=== PATIENT | male | born 1970 | race Caucasian/White ===

== ENCOUNTER 2019-10-31 10:57 | Inpatient (IN) | payer OTHER ==
--- NOTE | 2019-10-31 12:01 | BHS.RME ---
Substance Use & Tx History - Substance Use History Heroin Substance amount: 10 bags Frequency of use: Daily Substance route: Inhalation (ex: sniffing or snorting) Date of Last Use: 10/30/19 Xanax Substance amount: 2mg Frequency of use: Less than 3 times per week Substance route: Oral Date of Last Use: 10/28/19 Alcohol Substance amount: 1/2 pint vodka, 6 12oz/day Frequency of use: Daily Substance route: Oral Date of Last Use: 10/30/19 - Last Treatment Date of last treatment: NA Physical/Psych/Mental Status - Behavior General Behavior: Increased activity (restlessness, agitation) Eye Contact: Normal Other Behaviors: Mannerisms - Cooperativeness Cooperativeness: Cooperative - Thinking Thought Processes: Tight, Logical Thought content: Future oriented - Physical Health Problems Is patient presently having any pain?: Yes (abdominal pain) Does patient presently have any injuries (include location): No Does patient currently have a fever: No COWS - Scale Resting Pulse: 0= [place] 80 or Below Sweatin= Chills/Flushing Restless Observation: 1= Difficult to Sit Still Pupil Size: 1= Pupils >than Normal Bone or Joint Aches: 1= Mild Discomfort Runny Nose/ Eye Tearin= Runny Nose/Eyes GI Upset > 30mins: 1= Stomach Cramp Tremor Observation: 2= Slight Tremor Visible Yawning Observation: 1= 1-2x During Session Anxiety or Irritability: 2=Irritable/Anxious Goose Flesh Skin: 0=Smooth Skin COWS Score: 12 CIWA Nausea/Vomitin Muscle Tremors: 2 Anxiety: 2 Agitation: 2 Paroxysmal Sweats: 2 Orientation: 0-Oriented Tacttile Disturbances: 2-Mild Itch/Numbness/Burn Auditory Disturbances: 1-Very Mild Visual Disturbances: 1-Very Mild Sensitivity Headache: 0-None Present CIWA-Ar Total Score: 14
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
[2019-10-31] MEDS ORDERED: cloNIDine HCL 0.1 MG TABLET PO PRN (12:39)
[2019-10-31] MEDS ORDERED: METHADONE HCL 10 MG TABLET (FOR DETOX USE ONLY) PO ONE (12:39)
[2019-10-31] MEDS ORDERED: MAGNESIUM HYDROX 2400MG/30ML ORAL SUSPENSION 30 ML CUP PO PRN (12:39)
[2019-10-31] MEDS ORDERED: MAGNESIUM CITRATE 300 ML BOTTLE PO PRN (12:39)
[2019-10-31] MEDS ORDERED: METHOCARBAMOL 500 MG TABLET PO PRN (12:39)
[2019-10-31] MEDS ORDERED: NALOXONE HCL 0.4 MG/ML VIAL IM PRN (12:39)
[2019-10-31] MEDS ORDERED: ACETAMINOPHEN 325 MG TABLET (FP) PO PRN ×2 (12:39)
[2019-10-31] MEDS ORDERED: MENTHOL/PHENOL 1 EACH UD MM PRN (12:39)
[2019-10-31] MEDS ORDERED: MAG HYDROX/AL HYDROX/SIMETH 30 ML UNIT-DOSE CUP PO PRN (12:39)
[2019-10-31 12:40] VITALS: BMI 27.6
[2019-10-31] MEDS ORDERED: ALBUTEROL SO4 HFA INHALER IH PRN (12:43)
[2019-10-31] MEDS: diazePAM 5 MG TABLET PO SCH ×2 (13:37→22:22)
[2019-10-31] MEDS: PHENYTOIN NA EXTENDED 100 MG CAPSULE (FP) PO SCH (13:41)
--- NOTE | 2019-10-31 15:00 | EKG ---
Test Reason : Blood Pressure : / mmHG Vent. Rate : 068 BPM Atrial Rate : 068 BPM P-R Int : 140 ms QRS Dur : 100 ms QT Int : 366 ms P-R-T Axes : 049 057 041 degrees QTc Int : 389 ms NORMAL SINUS RHYTHM NORMAL ECG NO PREVIOUS ECGS AVAILABLE Confirmed by Delgado Resendiz ([id number]) on 10/31/2019 2:59:56 PM Referred By: Confirmed By:Delgado Resendiz
[2019-10-31] MEDS: diazePAM 5 MG TABLET PO PRN (17:35)
[2019-10-31] MEDS ORDERED: levETIRAcetam 250 MG TABLET PO ONE (21:27)
[2019-10-31] MEDS: MELATONIN 5 MG TABLETS PO SCH (22:21)
[2019-10-31] MEDS: levETIRAcetam 500 MG TABLET (FP) PO SCH (22:21)
[2019-10-31] MEDS: THIAMINE HCL 100 MG TABLET (FP) PO SCH (22:22)
[2019-11-01] MEDS: diazePAM 5 MG TABLET PO PRN ×2 (01:07→10:45)
[2019-11-01] MEDS: diazePAM 5 MG TABLET PO SCH ×3 (05:22→22:34)
[2019-11-01] MEDS ORDERED: METHADONE HCL 5 MG TABLET (FOR DETOX USE ONLY) PO ONE (10:00)
--- NOTE | 2019-11-01 10:31 | PN ---
[facility] CIWA - CIWA Score Nausea/Vomitin-Mild Nausea/No Vomiting Muscle Tremors: 2 Anxiety: 3 Agitation: 2 Paroxysmal Sweats: 3 Orientation: 0-Oriented Tacttile Disturbances: 0-None Auditory Disturbances: 0-None Visual Disturbances: 0-None Headache: 0-None Present CIWA-Ar Total Score: 11 BHS COWS - Scale Resting Pulse: 1= [place] 81-100 Sweatin= Chills/Flushing Restless Observation: 1= Difficult to Sit Still Pupil Size: 0= Normal to Room Light Bone or Joint Aches: 2= Severe Diffuse Aches Runny Nose/ Eye Tearin= None GI Upset > 30mins: 1= Stomach Cramp Tremor Observation of Outstretched Hands: 2= Slight Tremor Visible Yawning Observation: 0= None Anxiety or Irritability: 1=Feels Anxious/Irritable Goose Flesh Skin: 0=Smooth Skin COWS Score: 9 BHS Progress Note (SOAP) Subjective: Complaints of sweats, chills, anxiety, tremors , mild nausea/abdominal cramps, and joints aches. Objective: 11/01/19 10:29 Vital Signs 11/01/19 11/01/19 05:19 08:54 Temperature 96.9 F L 97.3 F L Pulse Rate 77 83 Respiratory 16 17 Rate Blood Pressure 129/85 121/72 O2 Sat by Pulse 100 100 Oximetry (%) Labs pending. Assessment: 11/01/19 10:30 Alert and oriented x 3, in no acute respiratory distress. Full ROM, ambulatory in unit without any assistance. Skin warm to touch without any lesions. Withdrawal symptoms. Plan: Continue detox protocol.
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
[2019-11-01] MEDS: levETIRAcetam 500 MG TABLET (FP) PO SCH ×2 (10:41→22:31)
[2019-11-01] MEDS: PRENATAL VITAMINS W/ FOLIC ACID TABLET (FP) PO SCH (10:42)
[2019-11-01] MEDS: PHENYTOIN NA EXTENDED 100 MG CAPSULE (FP) PO SCH (10:44)
[2019-11-01 11:11] LABS: BILIRUBIN,TOTAL 0.2 mg/dL (0.2-1); BLOOD UREA NITROGEN 19.2 mg/dL (7-18); CALCIUM 8.8 mg/dL (8.5-10.1); CREATININE 1.1 mg/dL (0.55-1.3); TOT PROT 6.4 g/dl (6.4-8.2)
[2019-11-01 11:37] LABS: HEMATOCRIT 26.8 % (35.4-49); MCH 20.7 pg (25.7-33.7); MCHC 29.8 g/dl (32.0-35.9); MEAN CELL VOLUME 69.5 fl (80-96); MEAN PLT VOLUME 9.6 fl (7.5-11.1); PLATELET COUNT 225 K/MM3 (134-434); RBC 3.85 M/mm3 (4.00-5.60); RDW 19.6 % (11.9-15.9); WHITE BLOOD COUNT 4.7 K/mm3 (4.0-10.0)
[2019-11-01] MEDS ORDERED: AMITRIPTYLINE HCL 75 MG TABLET PO SCH (22:00)
[2019-11-01] MEDS: buPROPion HCL 75 MG TABLET PO SCH (22:30)
[2019-11-01] MEDS: MELATONIN 5 MG TABLETS PO SCH (22:32)
[2019-11-01] MEDS: THIAMINE HCL 100 MG TABLET (FP) PO SCH (22:32)
[2019-11-01] MEDS: SUVOREXANT 10 MG TABLET PO PRN (22:34)
[2019-11-02] MEDS ORDERED: diazePAM 5 MG TABLET PO SCH (06:00)
[2019-11-02] MEDS ORDERED: METHADONE HCL 10 MG TABLET (FOR DETOX USE ONLY) PO ONE (10:00)
[2019-11-02] MEDS: PHENYTOIN NA EXTENDED 100 MG CAPSULE (FP) PO SCH (11:03)
[2019-11-02] MEDS: buPROPion HCL 75 MG TABLET PO SCH ×2 (11:03→17:33)
[2019-11-02] MEDS: levETIRAcetam 500 MG TABLET (FP) PO SCH ×2 (11:04→22:08)
[2019-11-02] MEDS: PRENATAL VITAMINS W/ FOLIC ACID TABLET (FP) PO SCH (11:04)
[2019-11-02] MEDS: FERROUS SO4 325 MG TABLET (FP) PO SCH ×2 (11:05→17:33)
[2019-11-02] MEDS: LORazepam 2 MG TABLET PO SCH ×3 (12:27→22:06)
--- NOTE | 2019-11-02 13:17 | PN ---
S CIWA - CIWA Score Nausea/Vomitin Muscle Tremors: 2 Anxiety: 2 Agitation: 2 Paroxysmal Sweats: 1-Minimal Palms Moist Orientation: 0-Oriented Tacttile Disturbances: 1-Very Mild Itch/Numbness Auditory Disturbances: 0-None Visual Disturbances: 0-None Headache: 2-Mild CIWA-Ar Total Score: 12 S Progress Note (SOAP) Subjective: alert,irritable,anxious,interrupted sleep,aching pain in the body and back Objective: 11/02/19 13:13 Initial Vital Signs Temp Pulse Resp BP 97.4 F L 65 18 122/76 10/31/19 12:19 10/31/19 12:19 10/31/19 12:19 10/31/19 12:19 11/02/19 13:14 Vital Signs Temperature 98.6 F 11/02/19 09:10 Pulse Rate 86 11/02/19 09:10 Respiratory Rate 19 11/02/19 09:10 Blood Pressure 139/56 L 11/02/19 09:10 O2 Sat by Pulse Oximetry (%) 100 11/02/19 09:10 11/02/19 13:14 Laboratory Last Values WBC 4.7 K/mm3 (4.0-10.0) 11/01/19 07:20 RBC 3.85 M/mm3 (4.00-5.60) L 11/01/19 07:20 Hgb 8.0 GM/dL (11.7-16.9) L 11/01/19 07:20 Hct 26.8 % (35.4-49) L D 11/01/19 07:20 MCV 69.5 fl (80-96) L 11/01/19 07:20 MCH 20.7 pg (25.7-33.7) L D 11/01/19 07:20 MCHC 29.8 g/dl (32.0-35.9) L 11/01/19 07:20 RDW 19.6 % (11.9-15.9) H 11/01/19 07:20 Plt Count 225 K/MM3 (134-434) D 11/01/19 07:20 MPV 9.6 fl (7.5-11.1) D 11/01/19 07:20 Sodium 135 mmol/L (136-145) L 11/01/19 07:20 Potassium 4.0 mmol/L (3.5-5.1) 11/01/19 07:20 Chloride 103 mmol/L (98-107) 11/01/19 07:20 Carbon Dioxide 25 mmol/L (21-32) 11/01/19 07:20 Anion Gap 7 MMOL/L (8-16) L 11/01/19 07:20 BUN 19.2 mg/dL (7-18) H 11/01/19 07:20 Creatinine 1.1 mg/dL (0.55-1.3) 11/01/19 07:20 Est GFR (CKD-EPI)AfAm 92.16 11/01/19 07:20 Est GFR (CKD-EPI)NonAf 79.52 11/01/19 07:20 Random Glucose 99 mg/dL (74-106) 11/01/19 07:20 Calcium 8.8 mg/dL (8.5-10.1) 11/01/19 07:20 Total Bilirubin 0.2 mg/dL (0.2-1) 11/01/19 07:20 AST 15 U/L (15-37) 11/01/19 07:20 ALT 21 U/L (13-61) 11/01/19 07:20 Alkaline Phosphatase 111 U/L (45-117) 11/01/19 07:20 Total Protein 6.4 g/dl (6.4-8.2) 11/01/19 07:20 Albumin 3.0 g/dl (3.4-5.0) L 11/01/19 07:20 Phenytoin <0.4 11/01/19 07:20 Syphilis Serology Non-reactive (NONREACTIVE) 11/01/19 07:20 COVID-19 (ASAD) Not detected (Not Detected) 10/31/19 12:40 Assessment: 11/02/19 13:17 withdrawal symptom Plan: continue detox,patient did not want valium regimen would like to change to ativan regimen,anemic ,use to take iron,ferrous sulfate 325 mgs po bid
[2019-11-02] MEDS: THIAMINE HCL 100 MG TABLET (FP) PO SCH (22:06)
[2019-11-02] MEDS: AMITRIPTYLINE HCL PO SCH (22:07)
[2019-11-02] MEDS: SUVOREXANT 10 MG TABLET PO PRN (22:07)
[2019-11-02] MEDS: MELATONIN 5 MG TABLETS PO SCH (22:08)
[2019-11-03] MEDS: LORazepam 2 MG TABLET PO SCH ×4 (05:58→22:06)
[2019-11-03] MEDS ORDERED: METHADONE HCL 5 MG TABLET (FOR DETOX USE ONLY) PO ONE (06:00)
[2019-11-03] MEDS ORDERED: diazePAM 5 MG TABLET PO ONE (06:00)
[2019-11-03] MEDS: FERROUS SO4 325 MG TABLET (FP) PO SCH ×2 (07:59→17:08)
[2019-11-03] MEDS: levETIRAcetam 500 MG TABLET (FP) PO SCH ×2 (10:17→22:08)
[2019-11-03] MEDS: buPROPion HCL 75 MG TABLET PO SCH ×2 (10:17→17:08)
[2019-11-03] MEDS: PRENATAL VITAMINS W/ FOLIC ACID TABLET (FP) PO SCH (10:17)
[2019-11-03] MEDS: PHENYTOIN NA EXTENDED 100 MG CAPSULE (FP) PO SCH (10:17)
--- NOTE | 2019-11-03 12:28 | PN ---
S CIWA - CIWA Score Nausea/Vomitin-Mild Nausea/No Vomiting Muscle Tremors: 2 Anxiety: 2 Agitation: 1-Slight > Activity Paroxysmal Sweats: No Perspiration Orientation: 0-Oriented Tacttile Disturbances: 0-None Auditory Disturbances: 0-None Visual Disturbances: 0-None Headache: 1-Very Mild CIWA-Ar Total Score: 7 BHS COWS - Scale Resting Pulse: 0= [place] 80 or Below Sweatin= No chills or Flushing Restless Observation: 0= Sits Still Pupil Size: 0= Normal to Room Light Bone or Joint Aches: 1= Mild Discomfort Runny Nose/ Eye Tearin= Nasal Congestion GI Upset > 30mins: 2= Nausea/Diarrhea Tremor Observation of Outstretched Hands: 2= Slight Tremor Visible Yawning Observation: 1= 1-2x During Session Anxiety or Irritability: 2=Irritable/Anxious Goose Flesh Skin: 0=Smooth Skin COWS Score: 9 S Progress Note (SOAP) Subjective: alert,irritable,anxious,interrupted sleep,tremor,pain in the body Objective: 11/03/19 12:33 Vital Signs Temperature 98.1 F 11/03/19 09:19 Pulse Rate 63 11/03/19 09:19 Respiratory Rate 16 11/03/19 09:19 Blood Pressure 115/63 11/03/19 09:19 O2 Sat by Pulse Oximetry (%) 96 11/03/19 05:55 11/03/19 12:33 Laboratory Last Values WBC 4.7 K/mm3 (4.0-10.0) 11/01/19 07:20 RBC 3.85 M/mm3 (4.00-5.60) L 11/01/19 07:20 Hgb 8.0 GM/dL (11.7-16.9) L 11/01/19 07:20 Hct 26.8 % (35.4-49) L D 11/01/19 07:20 MCV 69.5 fl (80-96) L 11/01/19 07:20 MCH 20.7 pg (25.7-33.7) L D 11/01/19 07:20 MCHC 29.8 g/dl (32.0-35.9) L 11/01/19 07:20 RDW 19.6 % (11.9-15.9) H 11/01/19 07:20 Plt Count 225 K/MM3 (134-434) D 11/01/19 07:20 MPV 9.6 fl (7.5-11.1) D 11/01/19 07:20 Sodium 135 mmol/L (136-145) L 11/01/19 07:20 Potassium 4.0 mmol/L (3.5-5.1) 11/01/19 07:20 Chloride 103 mmol/L (98-107) 11/01/19 07:20 Carbon Dioxide 25 mmol/L (21-32) 11/01/19 07:20 Anion Gap 7 MMOL/L (8-16) L 11/01/19 07:20 BUN 19.2 mg/dL (7-18) H 11/01/19 07:20 Creatinine 1.1 mg/dL (0.55-1.3) 11/01/19 07:20 Est GFR (CKD-EPI)AfAm 92.16 11/01/19 07:20 Est GFR (CKD-EPI)NonAf 79.52 11/01/19 07:20 Random Glucose 99 mg/dL (74-106) 11/01/19 07:20 Calcium 8.8 mg/dL (8.5-10.1) 11/01/19 07:20 Total Bilirubin 0.2 mg/dL (0.2-1) 11/01/19 07:20 AST 15 U/L (15-37) 11/01/19 07:20 ALT 21 U/L (13-61) 11/01/19 07:20 Alkaline Phosphatase 111 U/L (45-117) 11/01/19 07:20 Total Protein 6.4 g/dl (6.4-8.2) 11/01/19 07:20 Albumin 3.0 g/dl (3.4-5.0) L 11/01/19 07:20 Phenytoin <0.4 11/01/19 07:20 Syphilis Serology Non-reactive (NONREACTIVE) 11/01/19 07:20 COVID-19 (ASAD) Not detected (Not Detected) 10/31/19 12:40 Assessment: 11/03/19 12:36 withdrawal symptom Plan: continue detox methadone and ativan regimen,repeat cbc,bmp,dilatin in am
[2019-11-03] MEDS: LORazepam 1 MG TABLET PO PRN ×2 (13:05→18:53)
[2019-11-03] MEDS: THIAMINE HCL 100 MG TABLET (FP) PO SCH (22:06)
[2019-11-03] MEDS: AMITRIPTYLINE HCL PO SCH (22:07)
[2019-11-03] MEDS: SUVOREXANT 10 MG TABLET PO PRN (22:07)
[2019-11-03] MEDS: MELATONIN 5 MG TABLETS PO SCH (22:08)
[2019-11-04] MEDS: LORazepam 1 MG TABLET PO SCH ×4 (06:44→22:00)
[2019-11-04] MEDS: FERROUS SO4 325 MG TABLET (FP) PO SCH ×2 (07:04→17:30)
[2019-11-04] MEDS: buPROPion HCL 75 MG TABLET PO SCH ×2 (10:31→17:30)
[2019-11-04] MEDS: PRENATAL VITAMINS W/ FOLIC ACID TABLET (FP) PO SCH (10:31)
[2019-11-04 10:33] LABS: HEMATOCRIT 26.7 % (35.4-49); HEMOGLOBIN 8.1 GM/dL (11.7-16.9); MCHC 30.2 g/dl (32.0-35.9); MEAN CELL VOLUME 69.5 fl (80-96); MEAN PLT VOLUME 9.6 fl (7.5-11.1); PLATELET COUNT 189 K/MM3 (134-434); RBC 3.84 M/mm3 (4.00-5.60); RDW 20.1 % (11.9-15.9); WHITE BLOOD COUNT 4.8 K/mm3 (4.0-10.0)
[2019-11-04] MEDS: PHENYTOIN NA EXTENDED 100 MG CAPSULE (FP) PO SCH (10:33)
[2019-11-04] MEDS: levETIRAcetam 500 MG TABLET (FP) PO SCH ×2 (10:33→21:49)
[2019-11-04 10:36] LABS: BLOOD UREA NITROGEN 11.3 mg/dL (7-18); CALCIUM 8.4 mg/dL (8.5-10.1); CREATININE 0.9 mg/dL (0.55-1.3); POTASSIUM 3.9 mmol/L (3.5-5.1)
--- NOTE | 2019-11-04 11:28 | PN ---
S CIWA - CIWA Score Nausea/Vomitin-Mild Nausea/No Vomiting Muscle Tremors: 1-None Visible, but [place] Anxiety: 1-Mildly Anxious Agitation: 1-Slight > Activity Paroxysmal Sweats: No Perspiration Orientation: 0-Oriented Tacttile Disturbances: 1-Very Mild Itch/Numbness Auditory Disturbances: 0-None Visual Disturbances: 0-None Headache: 1-Very Mild CIWA-Ar Total Score: 6 BHS Progress Note (SOAP) Subjective: alert,irritable,anxious,interrupted sleep,tremor,pain in the body Objective: 11/04/19 11:38 Vital Signs Temperature 97.6 F 11/04/19 08:55 Pulse Rate 85 11/04/19 08:55 Respiratory Rate 19 11/04/19 08:55 Blood Pressure 131/71 11/04/19 08:55 O2 Sat by Pulse Oximetry (%) 99 11/04/19 08:55 Assessment: 11/04/19 11:39 withdrawal symptom Plan: continue detox ativan regimen
[2019-11-04] MEDS: LORazepam 1 MG TABLET PO PRN ×2 (14:29→19:34)
[2019-11-04] MEDS ORDERED: PHENYTOIN NA EXTENDED 100 MG CAPSULE (FP) PO SCH (14:32)
--- NOTE | 2019-11-04 14:32 | PN ---
Kasia Progress Note Note: patient has been refusing dilantin and keppra,so far no seizure activity,close monitoring,on ativan prn
[2019-11-04] MEDS ORDERED: PHENYTOIN NA EXTENDED 100 MG CAPSULE (FP) PO ONE (15:00)
[2019-11-04] MEDS: MELATONIN 5 MG TABLETS PO SCH (21:49)
[2019-11-04] MEDS: AMITRIPTYLINE HCL PO SCH (21:49)
[2019-11-04] MEDS: SUVOREXANT 10 MG TABLET PO PRN (21:49)
[2019-11-04] MEDS: THIAMINE HCL 100 MG TABLET (FP) PO SCH (21:51)
[2019-11-05] MEDS ORDERED: LORazepam 0.5 MG TABLET PO PRN
[2019-11-05] MEDS: LORazepam 0.5 MG TABLET PO SCH ×2 (05:32→10:19)
[2019-11-05] MEDS: FERROUS SO4 325 MG TABLET (FP) PO SCH (07:11)
--- NOTE | 2019-11-05 07:54 | PN ---
[facility] Progress Note Note: Patient has history of seizure and is refusing Dilantin. Signed refusal of treatment form Vital Signs Temperature 96.6 F L 11/05/19 05:19 Pulse Rate 78 11/05/19 05:19 Respiratory Rate 16 11/05/19 05:19 Blood Pressure 120/78 11/05/19 05:19 O2 Sat by Pulse Oximetry (%) 96 11/05/19 05:19 Laboratory Last Values WBC 4.8 K/mm3 (4.0-10.0) 11/04/19 07:50 RBC 3.84 M/mm3 (4.00-5.60) L 11/04/19 07:50 Hgb 8.1 GM/dL (11.7-16.9) L 11/04/19 07:50 Hct 26.7 % (35.4-49) L 11/04/19 07:50 MCV 69.5 fl (80-96) L 11/04/19 07:50 MCH 21.0 pg (25.7-33.7) L 11/04/19 07:50 MCHC 30.2 g/dl (32.0-35.9) L 11/04/19 07:50 RDW 20.1 % (11.9-15.9) H 11/04/19 07:50 Plt Count 189 K/MM3 (134-434) 11/04/19 07:50 MPV 9.6 fl (7.5-11.1) 11/04/19 07:50 Sodium 137 mmol/L (136-145) 11/04/19 07:50 Potassium 3.9 mmol/L (3.5-5.1) 11/04/19 07:50 Chloride 107 mmol/L (98-107) 11/04/19 07:50 Carbon Dioxide 25 mmol/L (21-32) 11/04/19 07:50 Anion Gap 5 MMOL/L (8-16) L 11/04/19 07:50 BUN 11.3 mg/dL (7-18) 11/04/19 07:50 Creatinine 0.9 mg/dL (0.55-1.3) 11/04/19 07:50 Est GFR (CKD-EPI)AfAm 117.47 11/04/19 07:50 Est GFR (CKD-EPI)NonAf 101.35 11/04/19 07:50 Random Glucose 107 mg/dL (74-106) H 11/04/19 07:50 Calcium 8.4 mg/dL (8.5-10.1) L 11/04/19 07:50 Total Bilirubin 0.2 mg/dL (0.2-1) 11/01/19 07:20 AST 15 U/L (15-37) 11/01/19 07:20 ALT 21 U/L (13-61) 11/01/19 07:20 Alkaline Phosphatase 111 U/L (45-117) 11/01/19 07:20 Total Protein 6.4 g/dl (6.4-8.2) 11/01/19 07:20 Albumin 3.0 g/dl (3.4-5.0) L 11/01/19 07:20 Phenytoin <0.4 11/04/19 07:50 Syphilis Serology Non-reactive (NONREACTIVE) 11/01/19 07:20 COVID-19 (ASAD) Not detected (Not Detected) 10/31/19 12:40 Action: Dilantin level ordered Maintain seizure precaution
[2019-11-05] MEDS: PRENATAL VITAMINS W/ FOLIC ACID TABLET (FP) PO SCH (09:50)
[2019-11-05] MEDS: buPROPion HCL 75 MG TABLET PO SCH (09:50)
[2019-11-05] MEDS: levETIRAcetam 500 MG TABLET (FP) PO SCH (09:52)
[2019-11-05 11:11] VITALS: TEMP 97.4
--- NOTE | 2019-11-05 11:56 | PN ---
S CIWA - CIWA Score Nausea/Vomitin-No Nausea/No Vomiting Muscle Tremors: None Anxiety: 1-Mildly Anxious Agitation: 1-Slight > Activity Paroxysmal Sweats: No Perspiration Orientation: 0-Oriented Tacttile Disturbances: 0-None Auditory Disturbances: 0-None Visual Disturbances: 0-None Headache: 0-None Present CIWA-Ar Total Score: 2 [facility] Progress Note (SOAP) Subjective: feeling ok little anxiety Objective: 11/05/19 11:53 Vital Signs Temperature 97.4 F L 11/05/19 09:35 Pulse Rate 79 11/05/19 09:35 Respiratory Rate 17 11/05/19 09:35 Blood Pressure 114/69 11/05/19 09:35 O2 Sat by Pulse Oximetry (%) 97 11/05/19 09:35 aaox3 ambulating no acute distress discussed the reason for not adhering to taking his dilantin; pt states I don't want it. It make me feel like it will bring on a seizure. Pt was explained that there are other medication that he can get to assist with preventing a seizure but he refused. Assessment: 11/05/19 11:55 mild withdrawals Plan: continue detox d/c in am
[2019-11-05] MEDS ORDERED: FERROUS SO4 325 MG TABLET (FP) PO SCH (12:00)
--- NOTE | 2019-11-05 13:40 | DS ---
[facility] Detox Discharge Summary Admission Date: 10/31/19 Discharge Date: 11/05/19 - History Present History: Alcohol Dependence - Physical Exam Results Vital Signs: Vital Signs Temperature 97.4 F L 11/05/19 09:35 Pulse Rate 79 11/05/19 09:35 Respiratory Rate 17 11/05/19 09:35 Blood Pressure 114/69 11/05/19 09:35 O2 Sat by Pulse Oximetry (%) 97 11/05/19 09:35 Pertinent Admission Physical Exam Findings: Vital Signs Temperature 97.4 F L 11/05/19 09:35 Pulse Rate 79 11/05/19 09:35 Respiratory Rate 17 11/05/19 09:35 Blood Pressure 114/69 11/05/19 09:35 O2 Sat by Pulse Oximetry (%) 97 11/05/19 09:35 Laboratory Tests 10/31/19 11/01/19 11/01/19 12:40 07:20 07:20 WBC RBC Hgb Hct MCV MCH MCHC RDW Plt Count MPV Sodium Potassium Chloride Carbon Dioxide Anion Gap BUN Creatinine Est GFR (CKD-EPI)AfAm Est GFR (CKD-EPI)NonAf Random Glucose Calcium Total Bilirubin AST ALT Alkaline Phosphatase Total Protein Albumin Phenytoin <0.4 Syphilis Serology Non-reactive COVID-19 (ASAD) Not detected 11/01/19 11/01/19 11/04/19 07:20 07:20 07:50 WBC 4.7 4.8 RBC 3.85 L 3.84 L Hgb 8.0 L 8.1 L Hct 26.8 L D 26.7 L MCV 69.5 L 69.5 L MCH 20.7 L D 21.0 L MCHC 29.8 L 30.2 L RDW 19.6 H 20.1 H Plt Count 225 D 189 MPV 9.6 D 9.6 Sodium 135 L Potassium 4.0 Chloride 103 Carbon Dioxide 25 Anion Gap 7 L BUN 19.2 H Creatinine 1.1 Est GFR (CKD-EPI)AfAm 92.16 Est GFR (CKD-EPI)NonAf 79.52 Random Glucose 99 Calcium 8.8 Total Bilirubin 0.2 AST 15 ALT 21 Alkaline Phosphatase 111 Total Protein 6.4 Albumin 3.0 L Phenytoin Syphilis Serology COVID-19 (ASAD) 11/04/19 11/04/19 07:50 07:50 WBC RBC Hgb Hct MCV MCH MCHC RDW Plt Count MPV Sodium 137 Potassium 3.9 Chloride 107 Carbon Dioxide 25 Anion Gap 5 L BUN 11.3 Creatinine 0.9 Est GFR (CKD-EPI)AfAm 117.47 Est GFR (CKD-EPI)NonAf 101.35 Random Glucose 107 H Calcium 8.4 L Total Bilirubin AST ALT Alkaline Phosphatase Total Protein Albumin Phenytoin <0.4 Syphilis Serology COVID-19 (ASAD) aaox3 ambulating no acute distress - Treatment Hospital Course: Detox Protocol Followed, Detoxed Safely, Responded well, Discharged Condition Good, Rehab Referral Accepted - Medication Discharge Medications: Ambulatory Orders Albuterol Sulfate Inhaler - [Ventolin Hfa Inhaler -] 1 - 2 inh PO QID PRN 10/31/19 Amitriptyline HCl [Elavil -] 150 mg PO HS 10/31/19 Bupropion HCl [Wellbutrin -] 75 mg PO DAILY 10/31/19 Bupropion HCl [Wellbutrin Xl -] 150 mg PO DAILY 10/31/19 Cariprazine HCl [Vraylar] 3 mg PO BID 10/31/19 Phenytoin Na Extended [Dilantin -] 300 mg PO DAILY 10/31/19 levETIRAcetam [Keppra -] 750 mg PO BID 10/31/19 - Diagnosis (1) Alcohol dependence with uncomplicated withdrawal Current Visit: Yes Status: Acute (2) Anemia Current Visit: Yes Status: Acute (3) Opioid dependence with withdrawal Current Visit: Yes Status: Acute (4) Substance induced mood disorder Current Visit: Yes Status: Acute (5) Substance-induced sleep disorder Current Visit: Yes Status: Acute (6) Bronchial asthma Current Visit: Yes Status: Chronic (7) HIV (human immunodeficiency virus infection) Current Visit: Yes Status: Chronic (8) Kidney stones Current Visit: Yes Status: Chronic (9) Schizoaffective disorder Current Visit: Yes Status: Chronic (10) Seizure disorder Current Visit: Yes Status: Chronic (11) TIA (transient ischemic attack) Current Visit: Yes Status: Chronic (12) CVA (cerebral vascular accident) Current Visit: Yes Status: Ruled-out - AMA Did Patient Leave Against Medical Advice: No
[2019-11-05 14:27] VITALS: BP 116/70; PULSE 99
[2019-11-06] MEDS ORDERED: LORazepam 0.5 MG TABLET PO ONE (05:00)
== END 2019-11-05 13:47 | disposition home or self-care (01) | DRG 773 ==
LOC: YASAS 10:57 → Y6N 12:16
PROVIDERS: ADMIT Allergy & Immunology; ATTEND Allergy & Immunology
PROC: HZ2ZZZZ Detoxification Services for Substance Abuse Treatment (ICD-10-PCS; principal; 2019-10-31)
DX: F11.23 Opioid dependence with withdrawal (principal); F10.230 Alcohol dependence with withdrawal, uncomplicated; F25.9 Schizoaffective disorder, unspecified; F19.282 Other psychoactive substance dependence with psychoactive substance-induced sleep disorder; F19.24 Other psychoactive substance dependence with psychoactive substance-induced mood disorder; Z21 Asymptomatic human immunodeficiency virus [HIV] infection status; D64.9 Anemia, unspecified; G40.909 Epilepsy, unspecified, not intractable, without status epilepticus; J45.909 Unspecified asthma, uncomplicated; N20.0 Calculus of kidney; Z62.810 Personal history of physical and sexual abuse in childhood; Z96.651 Presence of right artificial knee joint; Z86.73 Personal history of transient ischemic attack (TIA), and cerebral infarction without residual deficits; Z98.890 Other specified postprocedural states; Z91.5 Personal history of self-harm; Z89.201 Acquired absence of right upper limb, unspecified level; Z88.2 Allergy status to sulfonamides; Z88.6 Allergy status to analgesic agent; Z56.0 Unemployment, unspecified; Z59.0 Homelessness
CPT/HCPCS: 36415; 80048; 80053; 80185; 85027; 86780; 93005; 93010; U0003